=== PATIENT | male | born 1990 | race Two or more races ===

== ENCOUNTER 2018-05-27 20:55 | Emergency (ER) | payer OTHER ==
[~2018-05-27] VITALS: Ht 177.8 cm; Wt 73.9 kg
[2018-05-27] MEDS ORDERED: NKM (21:24)
[2018-05-27 21:25] VITALS: BP 109/56
--- NOTE | 2018-05-27 21:25 | NUR ---
ED Nurse Note: pt walked in c/o cough, sore throat and fever x 4 days.. pt complains of 6/10 pain on throat upon swallowing and coughing. seen by dwain. will continue to monitor.
[2018-05-27] MEDS ORDERED: SUDAFED PE PRE1 EAC3 PO (21:39)
[2018-05-27] MEDS ORDERED: TAMIFLU75 MG ORAL (21:39)
[2018-05-27 21:55] VITALS: BP 109/56
--- NOTE | 2018-05-27 21:55 | Emergency Room Report ---
History of Present Illness General Chief Complaint: Flu Like Symptoms Source: Patient Present Illness HPI 27-year-old male presents ED for evaluation. Complaining of cough, congestion, body aches 4 days. States had a fever today of 101 and took Tylenol. Pain is dull, 6 out of 10, nonradiating. Cough is productive with yellowish phlegm. Notes chills. Denies earache. Denies sick contacts or recent travel. No other aggravating relieving factors. Denies any other associated symptoms Allergies: Coded Allergies: No Known Allergies (Unverified , 05/27/18) Patient History Past Medical History: none Past Surgical History: none Pertinent Family History: none Social History: Denies: smoking, alcohol use, drug use Immunizations: UTD Reviewed Nursing Documentation: PMH: Agreed; PSxH: Agreed Nursing Documentation-PMH Past Medical History: No Stated History Review of Systems All Other Systems: negative except mentioned in HPI Physical Exam Vital Signs Date Time Temp Pulse Resp B/P (MAP) Pulse Ox O2 Delivery O2 Flow Rate FiO2 05/27/18 21:20 99.7 100 16 109/56 96 Room Air Sp02 EP Interpretation: reviewed, normal General Appearance: no apparent distress, alert, GCS 15, non-toxic Head: normocephalic, atraumatic Eyes: bilateral eye normal inspection, bilateral eye PERRL ENT: hearing grossly normal, normal pharynx, no angioedema, normal voice Neck: full range of motion, supple/symm/no masses Respiratory: chest non-tender, lungs clear, normal breath sounds, speaking full sentences Cardiovascular #1: regular rate, rhythm, no edema Cardiovascular #2: 2+ carotid (R), 2+ carotid (L), 2+ radial (R), 2+ radial (L) , 2+ dorsalis pedis (R), 2+ dorsalis pedis (L) Gastrointestinal: normal bowel sounds, non tender, soft, non-distended, no guarding, no rebound Rectal: deferred Genitourinary: normal inspection, no CVA tenderness Musculoskeletal: back normal, gait/station normal, normal range of motion, non- tender Neurologic: alert, oriented x3, responsive, motor strength/tone normal, sensory intact, speech normal Psychiatric: judgement/insight normal, memory normal, mood/affect normal, no suicidal/homicidal ideation Reflexes: 3+ bicep (R), 3+ bicep (L), 3+ tricep (R), 3+ tricep (L), 3+ knee (R) , 3+ knee (L) Skin: normal color, no rash, warm/dry, well hydrated Lymphatic: no adenopathy Medical Decision Making Diagnostic Impression: Primary Impression: Influenza-like symptoms ER Course Hospital Course 27-year-old M presents to ED complaining of fever + bodyaches + cough Differential diagnoses include: URI, pharyngitis, otitis media, influenza Clinical course Patient placed on stretcher. After initial history physical exam reveals a young female in no acute distress. Bilateral TM unremarkable, no pharyngeal erythema. Lungs clear. No CVA tenderness. vitals stable. Clinical findings consistent with influenza. Discussed findings with patient. We'll treat with Tamiflu. Safe for discharge close outpatient follow-up. Does not have a PMD. We'll provide referrals Diagnosis - influenza-like symptoms Stable and discharged home with prescriptions for tamiflu, sudafed congestion/ cough. drink plenty of fluids. Instructed to followup with PMD. Return to ED if symptoms recur or worsen Last Vital Signs Date Time Temp Pulse Resp B/P (MAP) Pulse Ox O2 Delivery O2 Flow Rate FiO2 05/27/18 21:20 99.7 100 16 109/56 96 Room Air Status: improved Disposition: HOME, SELF-CARE Condition: Improved Scripts Guaifen/Phenyleph/Acetaminophn (Sudafed PE Pressure+Pain+Mucus) 1 Each Tablet 1 EACH PO Q6HR, #30 TAB Prov: Jace Mariee MD 05/27/18 Oseltamivir Phosphate (Tamiflu) 75 Mg Capsule 75 MG ORAL TWICE A DAY for 5 Days, CAP Prov: Jace Mariee MD 05/27/18 [facility]: Return to Work Return to Work Date: May 30, 2018 Work Restrictions: None Patient Instructions: Influenza, Adult, [id number] Additional Instructions: take tylenol cold and flu or dayquil/nyquil for symptomatic care. Jace Mariee MD May 27, 2018 21:55
--- NOTE | 2018-05-27 21:55 | NUR ---
ER DISCHARGE NOTE: Patient is cleared to be discharged per ERMD, pt is aox4, on room air, with stable vital signs. pt was given dc and prescription instructions, pt was able to verbalize understanding, pt id band removed without complications. pt is able to ambulate with steady gait. pt took all belongings.
== END 2018-05-27 21:55 | disposition home or self-care (01) ==
LOC: EMR 21:33
DX: R05 Cough (principal); R50.9 Fever, unspecified
CPT/HCPCS: 99282

== ENCOUNTER 2018-08-25 13:22 | Emergency (ER) | payer OTHER ==
[~2018-08-25] VITALS: Ht 177.8 cm; Wt 74.4 kg
[~2018-08-25 13:22] MED LIST: NKM; SUDAFED PE PRE1 EAC3 PO; TAMIFLU75 MG ORAL
[2018-08-25 13:25] VITALS: BP 114/74
--- NOTE | 2018-08-25 13:25 | NUR ---
ED Nurse Note: Patient presents to ER due to temporal headache, vomiting (undigested food) and dizziness x 1 day. Guarding noted. Dimmed the light in room. Reports no head injury. Patient had similar pain 1 year ago. Patient is not taking any meds at this time. Seen by another ER for the same condition, but did not fill prescription yet. Provided comfort measures.
[2018-08-25] MEDS ORDERED: Ketorolac 60mg Inj IM ONE (14:00)
[2018-08-25] MEDS ORDERED: DiphenhydrAMINE 50mg/ml Inj IM ONE (14:00)
[2018-08-25] MEDS ORDERED: IBUPROFEN600 MG ORAL ×2 (14:16→15:14)
[2018-08-25] MEDS ORDERED: DIPHENHYDRAMINE25 M1 ORAL (15:14)
[2018-08-25] MEDS ORDERED: ZOFRAN4 M3 ORAL (15:14)
[2018-08-25 15:51] VITALS: BP 118/76
--- NOTE | 2018-08-25 15:52 | NUR ---
ED Nurse Note: PT SITTING PEACEFULLY IN BED IN NAD. AOX4. PRESCRIPTIONS AND DISCHARGE PAPERWORK EXPLAINED TO PT. PT VERBALIZES UNDERSTANDING AND ALL QUESTIONS ANSWERED. PRESCRIPTIONS AND DISCHARGE PAPERWORK GIVEN TO PT AND ID WRISTBAND REMOVED. PT WALKED OUT OF ER WITH STEADY GAIT AND ALL BELONGINGS.
--- NOTE | 2018-08-25 18:34 | Emergency Room Report ---
History of Present Illness General Chief Complaint: Headache Source: Patient Present Illness HPI Patient is a 27-year-old male presenting for headache. He states that he was seen at [facility] yesterday for the same complaint. He was given morphine at that time which did not help. He was also prescribed Imitrex but states this did not help either. Pain has continued and is a 10 out of 10 sharp sensation to the right side of the head. Does not radiate. Worse with bright lights. He also admits to nausea but denies vomiting. He states that he has had migraine headaches in the past and this feels similar. He admits to increased stress at work which may have instigated this. He denies any other symptoms including fever, chills, blurred vision, chest pain, shortness of breath, neck pain or stiffness Allergies: Coded Allergies: No Known Allergies (Unverified , 05/27/18) Patient History Past Medical History: see triage record Pertinent Family History: none Reviewed Nursing Documentation: PMH: Agreed; PSxH: Agreed Nursing Documentation-PMH Past Medical History: No Stated History Review of Systems All Other Systems: negative except mentioned in HPI Physical Exam Vital Signs Date Time Temp Pulse Resp B/P (MAP) Pulse Ox O2 Delivery O2 Flow Rate FiO2 08/25/18 13:25 97.3 18 114/74 99 Room Air 08/25/18 13:25 99 Sp02 EP Interpretation: reviewed, normal General Appearance: no apparent distress, alert, GCS 15, non-toxic Head: normocephalic, atraumatic Eyes: bilateral eye normal inspection, bilateral eye PERRL ENT: hearing grossly normal, normal pharynx, no angioedema, normal voice Neck: full range of motion, supple/symm/no masses Respiratory: chest non-tender, lungs clear, normal breath sounds, speaking full sentences Musculoskeletal: back normal, gait/station normal, normal range of motion, non- tender Neurologic: alert, oriented x3, responsive, motor strength/tone normal, sensory intact, speech normal Psychiatric: judgement/insight normal, memory normal, mood/affect normal, no suicidal/homicidal ideation Skin: no rash Medical Decision Making PA Attestation Dr. Zhu is my supervising physician. Patient management was discussed with my supervising physician Diagnostic Impression: Primary Impression: Migraine headache Qualified Codes: G43.909 - Migraine, unspecified, not intractable, without status migrainosus ER Course Patient is a 27-year-old male presenting for headache. Differential diagnoses include but not limited to Migraine, tension headache, cluster SCHULTZ, URI, among others PE: Afebrile. NAD HEENT exam unremarkable. PERRL. EOMI Patient is given IM Toradol, Benadryl, and Zofran ODT. Symptoms have significantly improved over the course of his stay here. He will be discharged home with prescription for Motrin, Benadryl, and Zofran. He is given limited time off of work. He is told to take in plenty of fluids at home and rest. ER precautions given Last Vital Signs Date Time Temp Pulse Resp B/P (MAP) Pulse Ox O2 Delivery O2 Flow Rate FiO2 08/25/18 15:51 97.6 92 17 118/76 100 Room Air Status: improved Disposition: HOME, SELF-CARE Condition: Improved Scripts Diphenhydramine Hcl* (DIPHENHYDRAMINE HCL*) 25 Mg Capsule 25 MG ORAL Q6H PRN for For Pain, #30 CAP 0 Refills Prov: WAYNEANGRACIA P.A. 08/25/18 Ondansetron* (ZOFRAN*) 4 Mg Tablet 4 MG ORAL Q6H PRN for Nausea & Vomiting, #20 TAB Prov: WAYNEANGRACIA P.A. 08/25/18 Ibuprofen* (MOTRIN*) 600 Mg Tablet 600 MG ORAL Q8H PRN for For Pain, #30 TAB 0 Refills Prov: TERANALIANCARITOY P.A. 08/25/18 Referrals: NOT CHOSEN [facility]/,REFERRING (PCP) Patient Instructions: Migraine Headache Additional Instructions: Please follow up with your primary doctor as soon as possible. Return to ER if pain worsens or new symptoms arise GRACIA IRVINABia Aug 25, 2018 18:34
== END 2018-08-25 15:53 | disposition home or self-care (01) ==
LOC: EMR 14:03
DX: G43.909 Migraine, unspecified, not intractable, without status migrainosus (principal)
CPT/HCPCS: 96372; 99283; J1200

== ENCOUNTER 2018-10-13 13:29 | Emergency (ER) | payer OTHER ==
[~2018-10-13] VITALS: Ht 175.3 cm; Wt 73.9 kg
[~2018-10-13 13:29] MED LIST changes: +DIPHENHYDRAMINE25 M1 ORAL; +IBUPROFEN600 MG ORAL; +ZOFRAN4 M3 ORAL
[2018-10-13 14:10] VITALS: BP 114/78
--- NOTE | 2018-10-13 14:10 | NUR ---
ED Nurse Note: Patient walked in c/o a productive cough x 3 weeks. Pt denies any pain. Temp 99.0 F in the ER. statd it satretd this morning at 11am. pt is seen by jim mauricio. jesse hale to monitor.
[2018-10-13] MEDS ORDERED: Ketorolac 60mg Inj IM ONE (14:30)
--- NOTE | 2018-10-13 14:31 | Emergency Room Report ---
History of Present Illness General Chief Complaint: Headache Source: Patient Present Illness HPI 28-year-old male with no significant past medical history here complaining of new onset of 2 days of right-sided headache rating a 10 out of 10 and seeing a aura. Patient was here at [facility] 2 months ago and was diagnosed with migraine headache presented with similar symptoms. Patient has not yet follow- up with her primary care provider nor has been seen by a neurologist. Patient reports that his pain started while he was resting 2 days ago complaining of photophobia, and nausea however denies vomiting. Reports that the headache is now migrating to the left side of his head. Reports that 2 months ago he first went to [facility] and they did a head CT scan which was negative. Patient is sitting comfortably and in mild distress. Denies alcohol intake, tobacco use , drug use. Denies recent head injury or loss of consciousness. Denies chest pain, shortness of breath, palpitation, no other associated symptoms. Denies recent URI. No motor or neurological deficits noted. Allergies: Coded Allergies: No Known Allergies (Unverified , 05/27/18) Patient History Past Medical History: see triage record Past Surgical History: unable to obtain Pertinent Family History: none Immunizations: UTD Reviewed Nursing Documentation: PMH: Agreed; PSxH: Agreed Nursing Documentation-PMH Past Medical History: No Stated History Review of Systems All Other Systems: negative except mentioned in HPI Physical Exam Vital Signs Date Time Temp Pulse Resp B/P (MAP) Pulse Ox O2 Delivery O2 Flow Rate FiO2 10/13/18 14:01 97.9 84 18 114/78 (90) 97 Room Air Sp02 EP Interpretation: reviewed, normal General Appearance: alert, GCS 15, non-toxic, mild distress Head: normocephalic, atraumatic Eyes: bilateral eye normal inspection, bilateral eye PERRL ENT: hearing grossly normal, normal pharynx, no angioedema, normal voice Neck: full range of motion, supple/symm/no masses Respiratory: chest non-tender, lungs clear, normal breath sounds, no retraction , speaking full sentences Cardiovascular #1: regular rate, rhythm, no edema, no murmur, normal capillary refill Gastrointestinal: normal inspection, soft Genitourinary: no CVA tenderness Musculoskeletal: normal inspection, back normal, digits/nails normal Neurologic: alert, oriented x3, responsive, motor strength/tone normal, sensory intact, speech normal Psychiatric: judgement/insight normal, memory normal, mood/affect normal, no suicidal/homicidal ideation Skin: no rash Lymphatic: no adenopathy Medical Decision Making PA Attestation All my diagnosis and treatment plans were reviewed ad discussed with my supervising physician Dr. Mariee Diagnostic Impression: Primary Impression: Migraine headache with aura ER Course 28-year-old male with no significant past medical history here complaining of new onset of 2 days of right-sided headache rating a 10 out of 10 and seeing a aura. Patient was here at [facility] 2 months ago and was diagnosed with migraine headache presented with similar symptoms. Patient has not yet follow- up with her primary care provider nor has been seen by a neurologist. Patient reports that his pain started while he was resting 2 days ago complaining of photophobia, and nausea however denies vomiting. Reports that the headache is now migrating to the left side of his head. Reports that 2 months ago he first went to [facility] and they did a head CT scan which was negative. Patient is sitting comfortably and in mild distress. Denies alcohol intake, tobacco use , drug use. Denies recent head injury or loss of consciousness. Denies chest pain, shortness of breath, palpitation, no other associated symptoms. Denies recent URI. No motor or neurological deficits noted. Ddx considered but are not limited to: Migraine headache with aura, migraine headache without aura, tension headache, cluster headache, Vital signs: are WNL, pt. is afebrile H&PE are most consistent with: Migraine headache with a aura ORDERS: Sumatriptan, Zofran ER intervention: Toradol DISCHARGE: At this time pt. is stable for d/c to home. Will provide printed patient care instructions, and any necessary prescriptions. Care plan and follow up instructions have been discussed with the patient prior to discharge. I advised the patient to follow-up with primary care provider had a brain MRI for proper diagnosis of migraine headache return to the emergency room with worsening symptoms patient also needs referral to neurologist. No further imaging is needed at this time as patient recently had a head CT scan that was negative and denies any recent head trauma. Last Vital Signs Date Time Temp Pulse Resp B/P (MAP) Pulse Ox O2 Delivery O2 Flow Rate FiO2 10/13/18 14:01 97.9 84 18 114/78 (90) 97 Room Air Disposition: HOME, SELF-CARE Condition: Stable Scripts Ondansetron (Zofran) 4 Mg Tablet 4 MG ORAL Q6H PRN for Nausea & Vomiting, #12 TAB Prov: Scar Farah 10/13/18 Sumatriptan Succinate (SUMATRIPTAN SUCCINATE) 25 Mg Tablet 25 MG PO BID, #20 TAB Prov: Scar Farah 10/13/18 Patient Instructions: Migraine Headache Additional Instructions: Take medication as directed follow-up with your primary care provider for referral to neurologist also brain MRI as needed for correct diagnosis of migraine headache if worsening symptoms return to emergency room. Scar Farah Oct 13, 2018 14:31
[2018-10-13] MEDS ORDERED: SUMATRIPTAN SUC25 MG PO (14:33)
[2018-10-13] MEDS ORDERED: ZOFRAN4 M1 ORAL (14:33)
[2018-10-13 14:40] VITALS: BP 115/75
== END 2018-10-13 14:40 | disposition home or self-care (01) ==
LOC: EMR 14:35
DX: G43.109 Migraine with aura, not intractable, without status migrainosus (principal)
CPT/HCPCS: 96372; 99283